=== PATIENT | female | born 1980 | race African-American/Black ===

== ENCOUNTER 2018-05-31 07:07 | Inpatient (IN) | payer SELFPAY ==
[~2018-05-31] VITALS: Ht 172.7 cm; Wt 121.6 kg
[~2018-05-31 07:07] MED LIST: ALBUTEROL; VICODIN
[2018-05-31] MEDS ORDERED: SODIUM CHLORIDE 0.9% 1,000 ML IV ONE (08:27)
[2018-05-31] MEDS ORDERED: HALOPERIDOL LACTATE 5MG/ML VIAL IM ONE (08:30)
[2018-05-31 09:18] LABS: BASOPHILS % 0.3 % (0.0-2.0); EOSINOPHILS % 0.2 % (0.0-5.0); HEMATOCRIT. 33.2 % (36.0-48.0); LYMPHOCYTES % 12.4 % (20.0-50.0); MEAN CORPUSCULAR HEMOGLOBIN 31.6 pg (28.0-32.0); MEAN CORPUSCULAR VOLUME 95.3 fL (81.0-99.0); MEAN PLATELET VOLUME 10.4 fl (7.4-10.4); MONOCYTES % 4.5 % (2.0-8.0); NEUTROPHILS % 82.6 % (40.0-76.0); PLATELET 215 x1000/uL (130-400); RED BLOOD CELL COUNT 3.49 mill/uL (4.2-5.4); RED CELL DISTRIBUTION WIDTH 13.8 % (11.6-14.6)
[2018-05-31 09:23] LABS: CHLORIDE 109 mEq/L (98-107); PROTHROMBIN TIME 10.3 sec (9.1-11.1)
[2018-05-31 09:29] LABS: ETHANOL BLOOD < 10 mg/dL
[2018-05-31 09:30] LABS: HCG SCREEN POSITIVE
[2018-05-31] MEDS ORDERED: POTASSIUM CHLORIDE 20MEQ TABLET SR PO NR (09:45)
[2018-05-31] MEDS ORDERED: SODIUM CHLORIDE 0.9% 1000ML BAG (SEPSIS BOLUS) IV ONE (10:00)
[2018-05-31 11:28] LABS: CLARITY URINE CLOUDY (CLEAR); KETONES URINE 2+ (NEGATIVE); LEUKOCYTE ESTERASE URINE 2+ (NEGATIVE); NITRITE URINE NEGATIVE (NEGATIVE); OCCULT BLOOD URINE 1+ (NEGATIVE); PH URINE 5.5 (4.5-8.0); PROTEIN URINE TRACE (NEGATIVE); SPECIFIC GRAVITY URINE 1.027 (1.005-1.030); UROBILINOGEN URINE 0.2 E.U./dL (0.2-1.0)
[2018-05-31 11:34] LABS: COLOR URINE DARK YELLOW (YELLOW)
[2018-05-31] MEDS: SODIUM CHLORIDE 0.9% IV SCH ×2 (11:36→14:33)
[2018-05-31 11:49] LABS: *BENZODIAZEPINES SCREEN URINE NEGATIVE (NEGATIVE); *COCAINE SCREEN URINE NEGATIVE (NEGATIVE)
[2018-05-31 11:50] LABS: METHADONE URINE SCREEN NEGATIVE (NEGATIVE); OPIATES URINE SCREEN NEGATIVE (NEGATIVE); PHENCYCLIDINE URINE SCREEN NEGATIVE (NEGATIVE)
[2018-05-31 12:05] LABS: *AMPHETAMINES SCREEN URINE NEGATIVE (NEGATIVE); *BARBITURATES SCREEN URINE NEGATIVE (NEGATIVE)
[2018-05-31 12:11] LABS: CANNABINOID URINE SCREEN PRESUMTIVE POSITIVE (NEGATIVE)
[2018-05-31] MEDS ORDERED: ONDANSETRON HCL 4MG/2ML VIAL IV STA (12:22)
[2018-05-31] MEDS ORDERED: MORPHINE SULFATE 4 MG/ML CPJ (NOT FOR IM USE) IV STA (12:22)
[2018-05-31] MEDS ORDERED: LEVOFLOXACIN 750MG PREMIX 150 ML IV ONE (13:45)
[2018-05-31 16:00] VITALS: BP 98/50
[2018-05-31] MEDS ORDERED: PROPOFOL 200MG/20ML VIAL IV ONE (20:12)
[2018-05-31] MEDS ORDERED: ROCURONIUM BROMIDE 10MG/ML VIAL 5ML IV ONE (20:12)
[2018-05-31] MEDS ORDERED: FENTANYL CITRATE/PF 50MCG/ML 5ML VIAL ONE (20:12)
[2018-05-31] MEDS ORDERED: ONDANSETRON HCL 4MG/2ML VIAL ONE (20:13)
[2018-05-31] MEDS ORDERED: METOCLOPRAMIDE HCL 10MG/2ML VIAL ONE (20:13)
[2018-05-31] MEDS ORDERED: MIDAZOLAM HCL 2 MG/2 ML VIAL ONE (20:13)
[2018-05-31] MEDS ORDERED: DEXAMETHASONE 4MG/ML 1ML VIAL ONE (20:13)
[2018-05-31] MEDS ORDERED: KETOROLAC 30MG/ML VIAL ONE (20:13)
[2018-05-31] MEDS ORDERED: LIDOCAINE HCL/PF 1% 10 MG/ML 5ML VIAL ONE (20:13)
[2018-05-31] MEDS ORDERED: GLYCOPYRROLATE 0.2 MG/ML 2ML VIAL ONE ×2 (21:27→22:19)
[2018-05-31] MEDS ORDERED: ONDANSETRON HCL 4MG/2ML VIAL IV PRN ×2 (21:30→22:00)
[2018-05-31] MEDS ORDERED: MEPERIDINE HCL/PF 25MG/ML CPJ IV PRN (21:30)
[2018-05-31] MEDS ORDERED: FENTANYL CITRATE/PF 50MCG/ML 2ML VIAL IV PRN (21:30)
[2018-05-31] MEDS ORDERED: HYDROMORPHONE HCL/PF 2MG/ML CPJ IV PRN (21:30)
[2018-05-31] MEDS ORDERED: MORPHINE SULFATE 4 MG/ML CPJ (NOT FOR IM USE) IV PRN (22:00)
[2018-05-31] MEDS ORDERED: NEOSTIGMINE METHYLSULFATE 1MG/ML 10 ML VIAL ONE (22:19)
[2018-05-31 22:36] LABS: BG BASE EXCESS -15.2 mmol/L (-2.0-2.0); BG CARBOXYHEMOGLOBIN 0.2 % (0.5-1.5); BG DEOXYHEMOGLOBIN 30.8 % (0.0-5.0); BG FRACTION INSPIRED OXYGEN 100; BG HCO3 ACT 13.9 mmol/L (22.0-26.0); BG METHEMOGLOBIN 0.4 % (0.0-1.5); BG OXYHEMOGLOBIN 68.6 % (94.0-97.0); BG PCO2 48.5 mmHg (35.0-45.0); BG PH 7.075 (7.350-7.450); BG PO2 52.2 mmHg (75.0-100.0); BG SAMPLE SITE RIGHT RADIAL; BG TIDAL VOLUME(mL) 500 mL; BG TOTAL HEMOGLOBIN 7.8 g/dL (12.0-18.0); BG VENT MODE VENT - A/C; BG VENT RATE 14 set
[2018-05-31] MEDS ORDERED: ALBUTEROL 90MCG/PUFF 17GM INHALER INH ONE (22:37)
[2018-05-31] MEDS ORDERED: SODIUM BICARBONATE 7.5% 0.9 MEQ/ML 50ML SYR IV ONE (22:51)
[2018-05-31] MEDS ORDERED: FUROSEMIDE 20MG/2ML VIAL ONE (23:05)
[2018-05-31] MEDS ORDERED: IPRATROPIUM/ALBUTEROL 0.5-3(2.5)MG/3ML NEB HHN NR (23:11)
[2018-05-31] MEDS ORDERED: IPRATROPIUM/ALBUTEROL 0.5-3(2.5)MG/3ML NEB ONE (23:19)
[2018-05-31 23:40] VITALS: BP 131/75
[2018-05-31 23:57] VITALS: BP 116/43
[2018-06-01] VITALS (95 sets, daily range): BP systolic 72–178; BP diastolic 21–107
[2018-06-01 00:22] LABS: BASOPHILS % 0.3 % (0.0-2.0); HEMATOCRIT. 26.9 % (36.0-48.0); HEMOGLOBIN. 8.9 g/dL (12.0-16.0); LYMPHOCYTES % 9.2 % (20.0-50.0); MEAN CORPUSCULAR VOLUME 97.2 fL (81.0-99.0); MEAN PLATELET VOLUME 10.1 fl (7.4-10.4); MONOCYTES % 1.9 % (2.0-8.0); NEUTROPHILS % 88.6 % (40.0-76.0); PLATELET 193 x1000/uL (130-400); RED BLOOD CELL COUNT 2.77 mill/uL (4.2-5.4); RED CELL DISTRIBUTION WIDTH 14.4 % (11.6-14.6)
[2018-06-01] MEDS ORDERED: IPRATROPIUM/ALBUTEROL 0.5-3(2.5)MG/3ML NEB HHN PRN (00:45)
[2018-06-01 01:17] LABS: BG BASE EXCESS -12.3 mmol/L (-2.0-2.0); BG BILEVEL POS AIRWAY PRESSURE 15/5; BG CARBOXYHEMOGLOBIN 0.3 % (0.5-1.5); BG DEOXYHEMOGLOBIN 1.3 % (0.0-5.0); BG FRACTION INSPIRED OXYGEN 100; BG HCO3 ACT 14.1 mmol/L (22.0-26.0); BG OXYGEN SATURATION 98.7 % (92.0-98.5); BG OXYHEMOGLOBIN 98.4 % (94.0-97.0); BG PCO2 34.3 mmHg (35.0-45.0); BG PH 7.233 (7.350-7.450); BG PO2 188.7 mmHg (75.0-100.0); BG SAMPLE SITE RIGHT RADIAL; BG TOTAL HEMOGLOBIN 10.1 g/dL (12.0-18.0); BG VENT MODE MASK - BIPAP; BG VENT RATE 16 set
[2018-06-01] MEDS ORDERED: SODIUM BICARBONATE 8.4% 1 MEQ/ML 50ML SYR IV SCH (01:50)
[2018-06-01] MEDS: IPRATROPIUM/ALBUTEROL 0.5-3(2.5)MG/3ML NEB HHN SCH ×6 (02:10→20:15)
[2018-06-01] MEDS ORDERED: LACTATED RINGERS 1,000 ML IV SCH (03:00)
[2018-06-01] MEDS ORDERED: FUROSEMIDE 20MG/2ML VIAL IVP SCH (05:45)
[2018-06-01 05:50] LABS: HEMATOCRIT. 26.3 % (36.0-48.0); MEAN CORPUSCULAR HEMOGLOBIN 32.6 pg (28.0-32.0); MEAN CORPUSCULAR VOLUME 95.4 fL (81.0-99.0); MEAN PLATELET VOLUME 10.4 fl (7.4-10.4); PLATELET 156 x1000/uL (130-400); RED BLOOD CELL COUNT 2.75 mill/uL (4.2-5.4); RED CELL DISTRIBUTION WIDTH 13.9 % (11.6-14.6)
[2018-06-01 06:07] LABS: BG BASE EXCESS -6.6 mmol/L (-2.0-2.0); BG BILEVEL POS AIRWAY PRESSURE 15/5; BG CARBOXYHEMOGLOBIN 0.3 % (0.5-1.5); BG DEOXYHEMOGLOBIN 1.1 % (0.0-5.0); BG FRACTION INSPIRED OXYGEN 80; BG HCO3 ACT 18.3 mmol/L (22.0-26.0); BG METHEMOGLOBIN 0.2 % (0.0-1.5); BG OXYGEN SATURATION 98.9 % (92.0-98.5); BG OXYHEMOGLOBIN 98.4 % (94.0-97.0); BG PCO2 34.2 mmHg (35.0-45.0); BG PH 7.347 (7.350-7.450); BG SAMPLE SITE RIGHT RADIAL; BG TOTAL HEMOGLOBIN 9.6 g/dL (12.0-18.0); BG VENT MODE MASK - BIPAP; BG VENT RATE 16 set
[2018-06-01 06:53] LABS: CHLORIDE 112 mEq/L (98-107)
[2018-06-01] MEDS ORDERED: DILTIAZEM HCL 5MG/ML 5ML VIAL IV SCH (08:15)
[2018-06-01] MEDS: SODIUM CHLORIDE 0.45% 1,000 ML IV SCH (08:50)
[2018-06-01] MEDS ORDERED: VANCOMYCIN 2,000 MG in DEXT 5% WATER 500 ML IV SCH (10:30)
[2018-06-01] MEDS ORDERED: NICOTINE 21MG PATCH TD SCH (11:30)
[2018-06-01 12:20] LABS: BG BASE EXCESS -4.4 mmol/L (-2.0-2.0); BG DEOXYHEMOGLOBIN 1.3 % (0.0-5.0); BG HCO3 ACT 20.7 mmol/L (22.0-26.0); BG METHEMOGLOBIN 0.3 % (0.0-1.5); BG OXYGEN SATURATION 98.7 % (92.0-98.5); BG OXYHEMOGLOBIN 98.4 % (94.0-97.0); BG PCO2 37.7 mmHg (35.0-45.0); BG PH 7.357 (7.350-7.450); BG PO2 180.4 mmHg (75.0-100.0); BG SAMPLE SITE RIGHT RADIAL; BG TIDAL VOLUME(mL) 500 mL; BG TOTAL HEMOGLOBIN 8.3 g/dL (12.0-18.0); BG VENT MODE VENT - A/C; BG VENT RATE 16 set
[2018-06-01 12:28] LABS: PLATELET ESTIMATE NORMAL
[2018-06-01] MEDS ORDERED: LIDOCAINE HCL 1% 20ML VIAL (Pyxis) INJ ONE (12:52)
[2018-06-01] MEDS: FENTANYL CITRATE/PF 500 MCG in SODIUM CHLORIDE 0.9% 40 ML IV PRN (13:15)
[2018-06-01] MEDS: MIDAZOLAM HCL 50 MG in DEXTROSE 5% WATER 40 ML IV PRN ×3 (13:18→23:31)
[2018-06-01] MEDS ORDERED: NORMAL SALINE 0.9% 10 ML SYR ONE (13:25)
[2018-06-01] MEDS ORDERED: ETOMIDATE 2MG/ML 10ML VIAL IV ONE (13:25)
[2018-06-01] MEDS ORDERED: SUCCINYLCHOLINE CHLORIDE 200MG/10ML VIAL IV ONE (13:25)
[2018-06-01] MEDS: PROPOFOL 10MG/ML 100ML 100 ML IV PRN ×3 (13:39→20:56)
[2018-06-01] MEDS: NOREPINEPHRINE 16 MG in DEXT 5% WATER 234 ML IV PRN (14:18)
[2018-06-01] MEDS: LEVOFLOXACIN 750MG PREMIX 150 ML IV SCH (15:34)
[2018-06-01] MEDS: DILTIAZEM HCL 125 MG in DEXT 5% WATER 100 ML IV PRN (16:50)
[2018-06-01] MEDS: BUDESONIDE 0.5MG/2ML NEB HHN SCH ×2 (18:17→20:15)
[2018-06-01] MEDS: FAMOTIDINE 20MG/2ML VIAL IV SCH (20:11)
[2018-06-01] MEDS: VANCOMYCIN 1250MG in DEXTROSE 5% WATER 250ML IV SCH (23:14)
[2018-06-02] VITALS (94 sets, daily range): BP systolic 87–129; BP diastolic 46–77
[2018-06-02] MEDS ORDERED: FUROSEMIDE 20MG/2ML VIAL IVP SCH (04:00)
[2018-06-02] MEDS: FENTANYL CITRATE/PF 500 MCG in SODIUM CHLORIDE 0.9% 40 ML IV PRN ×4 (04:08→22:53)
[2018-06-02] MEDS: DILTIAZEM HCL 125 MG in DEXT 5% WATER 100 ML IV PRN ×2 (04:11→14:21)
[2018-06-02] MEDS: SODIUM CHLORIDE 0.45% 1,000 ML IV SCH (05:03)
[2018-06-02] MEDS: MIDAZOLAM HCL 50 MG in DEXTROSE 5% WATER 40 ML IV PRN ×2 (05:16→10:13)
[2018-06-02] MEDS: NOREPINEPHRINE 16 MG in DEXT 5% WATER 234 ML IV PRN (07:20)
[2018-06-02] MEDS: BUDESONIDE 0.5MG/2ML NEB HHN SCH ×2 (08:08→20:23)
[2018-06-02] MEDS: IPRATROPIUM/ALBUTEROL 0.5-3(2.5)MG/3ML NEB HHN SCH ×3 (08:08→20:20)
[2018-06-02] MEDS: FAMOTIDINE 20MG/2ML VIAL IV SCH ×2 (08:31→22:22)
[2018-06-02] MEDS: THIAMINE HCL 100MG TABLET NG SCH (08:31)
[2018-06-02] MEDS: MULTIVITAMINS,THER W-MINERALS TABLET NG SCH (08:32)
[2018-06-02] MEDS: NICOTINE 21MG PATCH TD SCH (08:32)
[2018-06-02] MEDS: FOLIC ACID 1MG TABLET NG SCH (08:32)
[2018-06-02 08:33] LABS: BG BASE EXCESS 0.7 mmol/L (-2.0-2.0); BG CARBOXYHEMOGLOBIN 0.6 % (0.5-1.5); BG DEOXYHEMOGLOBIN 3.6 % (0.0-5.0); BG FRACTION INSPIRED OXYGEN 50; BG HCO3 ACT 25.3 mmol/L (22.0-26.0); BG METHEMOGLOBIN 0.9 % (0.0-1.5); BG OXYGEN SATURATION 96.3 % (92.0-98.5); BG OXYHEMOGLOBIN 94.9 % (94.0-97.0); BG PCO2 40.5 mmHg (35.0-45.0); BG PH 7.414 (7.350-7.450); BG PO2 92.4 mmHg (75.0-100.0); BG SAMPLE SITE RIGHT RADIAL; BG TIDAL VOLUME(mL) 450 mL; BG TOTAL HEMOGLOBIN 5.7 g/dL (12.0-18.0); BG VENT MODE VENT - A/C; BG VENT RATE 16 set
[2018-06-02] MEDS: VANCOMYCIN 1250MG in DEXTROSE 5% WATER 250ML IV SCH ×2 (10:46→22:21)
[2018-06-02] MEDS: PHENYLEPHRINE 20 MG in DEXT 5% WATER 248 ML IV PRN ×2 (12:57→17:18)
[2018-06-02] MEDS: LEVOFLOXACIN 750MG PREMIX 150 ML IV SCH (13:22)
[2018-06-02] MEDS: MIDAZOLAM HCL 100 MG in DEXT 5% WATER 80 ML IV PRN (15:34)
[2018-06-03] VITALS (89 sets, daily range): BP systolic 90–126; BP diastolic 46–81
[2018-06-03] MEDS: IPRATROPIUM/ALBUTEROL 0.5-3(2.5)MG/3ML NEB HHN SCH ×4 (02:26→19:42)
[2018-06-03] MEDS: MIDAZOLAM HCL 100 MG in DEXT 5% WATER 80 ML IV PRN ×3 (02:49→22:54)
[2018-06-03] MEDS: FENTANYL CITRATE/PF 500 MCG in SODIUM CHLORIDE 0.9% 40 ML IV PRN ×4 (04:23→20:29)
[2018-06-03] MEDS: DILTIAZEM HCL 125 MG in DEXT 5% WATER 100 ML IV PRN ×2 (04:31→17:57)
[2018-06-03 06:25] LABS: BASOPHILS % 0.5 % (0.0-2.0); EOSINOPHILS % 1.2 % (0.0-5.0); LYMPHOCYTES % 13.4 % (20.0-50.0); MEAN CORPUSCULAR HEMOGLOBIN 32.3 pg (28.0-32.0); MEAN PLATELET VOLUME 10.2 fl (7.4-10.4); MONOCYTES % 3.9 % (2.0-8.0); PLATELET 129 x1000/uL (130-400); RED BLOOD CELL COUNT 1.62 mill/uL (4.2-5.4); RED CELL DISTRIBUTION WIDTH 14.2 % (11.6-14.6)
[2018-06-03 06:33] LABS: HEMOGLOBIN. 5.2 g/dL (12.0-16.0)
[2018-06-03 06:34] LABS: HEMATOCRIT. 15.4 % (36.0-48.0)
[2018-06-03] MEDS: BUDESONIDE 0.5MG/2ML NEB HHN SCH ×2 (07:23→19:43)
[2018-06-03 08:16] LABS: BG BASE EXCESS 4.8 mmol/L (-2.0-2.0); BG CARBOXYHEMOGLOBIN 0.7 % (0.5-1.5); BG DEOXYHEMOGLOBIN 2.3 % (0.0-5.0); BG FRACTION INSPIRED OXYGEN 40; BG HCO3 ACT 29.7 mmol/L (22.0-26.0); BG METHEMOGLOBIN 0.3 % (0.0-1.5); BG OXYGEN SATURATION 97.7 % (92.0-98.5); BG OXYHEMOGLOBIN 96.7 % (94.0-97.0); BG PCO2 47.1 mmHg (35.0-45.0); BG PH 7.418 (7.350-7.450); BG PO2 106.2 mmHg (75.0-100.0); BG SAMPLE SITE RIGHT RADIAL; BG TIDAL VOLUME(mL) 450 mL; BG TOTAL HEMOGLOBIN 5.9 g/dL (12.0-18.0); BG VENT MODE VENT - A/C; BG VENT RATE 16 set
[2018-06-03 08:38] LABS: CHLORIDE 101 mEq/L (98-107)
[2018-06-03] MEDS: NICOTINE 21MG PATCH TD SCH (09:00)
[2018-06-03] MEDS: THIAMINE HCL 100MG TABLET NG SCH (09:01)
[2018-06-03] MEDS: FOLIC ACID 1MG TABLET NG SCH (09:01)
[2018-06-03] MEDS: FAMOTIDINE 20MG/2ML VIAL IV SCH ×2 (09:01→20:19)
[2018-06-03] MEDS: MULTIVITAMINS,THER W-MINERALS TABLET NG SCH (09:01)
[2018-06-03] MEDS: VANCOMYCIN 1250MG in DEXTROSE 5% WATER 250ML IV SCH ×2 (12:18→20:19)
[2018-06-03] MEDS: LEVOFLOXACIN 750MG PREMIX 150 ML IV SCH (13:13)
[2018-06-03] MEDS: PHENYLEPHRINE 20 MG in DEXT 5% WATER 248 ML IV PRN (17:57)
[2018-06-03] MEDS: SODIUM CHLORIDE 0.45% 1,000 ML IV SCH (19:48)
[2018-06-03 20:10] LABS: HEMATOCRIT 24.7 % (36.0-48.0); HEMOGLOBIN 8.4 g/dL (12.0-16.0)
[2018-06-04] VITALS (88 sets, daily range): BP systolic 81–163; BP diastolic 47–134
[2018-06-04] MEDS: IPRATROPIUM/ALBUTEROL 0.5-3(2.5)MG/3ML NEB HHN SCH ×4 (01:30→19:56)
[2018-06-04] MEDS: DILTIAZEM HCL 125 MG in DEXT 5% WATER 100 ML IV PRN (02:44)
[2018-06-04] MEDS: FENTANYL CITRATE/PF 500 MCG in SODIUM CHLORIDE 0.9% 40 ML IV PRN ×4 (03:01→20:35)
[2018-06-04] MEDS: VANCOMYCIN 1250MG in DEXTROSE 5% WATER 250ML IV SCH ×3 (04:29→20:33)
[2018-06-04 05:16] LABS: BASOPHILS % 0.5 % (0.0-2.0); EOSINOPHILS % 1.3 % (0.0-5.0); HEMATOCRIT. 22.4 % (36.0-48.0); HEMOGLOBIN. 7.7 g/dL (12.0-16.0); LYMPHOCYTES % 14.8 % (20.0-50.0); MEAN CORPUSCULAR HEMOGLOBIN 30.8 pg (28.0-32.0); MEAN CORPUSCULAR VOLUME 89.8 fL (81.0-99.0); MEAN PLATELET VOLUME 9.3 fl (7.4-10.4); MONOCYTES % 4.9 % (2.0-8.0); NEUTROPHILS % 78.5 % (40.0-76.0); PLATELET 140 x1000/uL (130-400); RED BLOOD CELL COUNT 2.49 mill/uL (4.2-5.4); RED CELL DISTRIBUTION WIDTH 15.5 % (11.6-14.6)
[2018-06-04 05:17] LABS: CHLORIDE 102 mEq/L (98-107)
[2018-06-04] MEDS: BUDESONIDE 0.5MG/2ML NEB HHN SCH ×2 (07:49→19:56)
[2018-06-04 08:21] LABS: BG BASE EXCESS 6.2 mmol/L (-2.0-2.0); BG CARBOXYHEMOGLOBIN 0.6 % (0.5-1.5); BG FRACTION INSPIRED OXYGEN 40; BG HCO3 ACT 31.4 mmol/L (22.0-26.0); BG METHEMOGLOBIN 0.1 % (0.0-1.5); BG OXYHEMOGLOBIN 97.3 % (94.0-97.0); BG PCO2 49.7 mmHg (35.0-45.0); BG PH 7.418 (7.350-7.450); BG SAMPLE SITE RIGHT RADIAL; BG TIDAL VOLUME(mL) 450 mL; BG TOTAL HEMOGLOBIN 7.7 g/dL (12.0-18.0); BG VENT MODE VENT - A/C; BG VENT RATE 16 set
[2018-06-04] MEDS: FOLIC ACID 1MG TABLET NG SCH (09:48)
[2018-06-04] MEDS: MULTIVITAMINS,THER W-MINERALS TABLET NG SCH (09:48)
[2018-06-04] MEDS: THIAMINE HCL 100MG TABLET NG SCH (09:48)
[2018-06-04] MEDS: FAMOTIDINE 20MG/2ML VIAL IV SCH ×2 (09:48→20:33)
[2018-06-04] MEDS: NICOTINE 21MG PATCH TD SCH (09:49)
[2018-06-04] MEDS ORDERED: BISACODYL 10MG SUPP PR PRN (11:15)
[2018-06-04] MEDS: DOCUSATE SODIUM 250MG CAPSULE PO SCH (11:55)
[2018-06-04] MEDS: METOCLOPRAMIDE HCL 10MG/2ML VIAL IV SCH ×2 (11:55→17:25)
[2018-06-04] MEDS: MIDAZOLAM HCL 100 MG in DEXT 5% WATER 80 ML IV PRN (11:57)
[2018-06-04] MEDS: LEVOFLOXACIN 750MG PREMIX 150 ML IV SCH (13:17)
[2018-06-04] MEDS: SODIUM CHLORIDE 0.45% 1,000 ML IV SCH (20:33)
[2018-06-05] VITALS (78 sets, daily range): BP systolic 77–128; BP diastolic 32–104
[2018-06-05] MEDS: METOCLOPRAMIDE HCL 10MG/2ML VIAL IV SCH ×4 (00:33→18:06)
[2018-06-05] MEDS: IPRATROPIUM/ALBUTEROL 0.5-3(2.5)MG/3ML NEB HHN SCH ×4 (01:48→20:16)
[2018-06-05] MEDS: FENTANYL CITRATE/PF 500 MCG in SODIUM CHLORIDE 0.9% 40 ML IV PRN ×3 (02:38→20:12)
[2018-06-05] MEDS: VANCOMYCIN 1250MG in DEXTROSE 5% WATER 250ML IV SCH ×3 (03:58→20:21)
[2018-06-05 07:36] LABS: BG CARBOXYHEMOGLOBIN 0.4 % (0.5-1.5); BG DEOXYHEMOGLOBIN 2.1 % (0.0-5.0); BG METHEMOGLOBIN 0.3 % (0.0-1.5); BG OXYGEN SATURATION 97.9 % (92.0-98.5); BG OXYHEMOGLOBIN 97.2 % (94.0-97.0); BG PCO2 47.7 mmHg (35.0-45.0); BG PH 7.417 (7.350-7.450); BG PO2 122.6 mmHg (75.0-100.0); BG SAMPLE SITE RIGHT BRACHIAL; BG TIDAL VOLUME(mL) 450 mL; BG TOTAL HEMOGLOBIN 7.3 g/dL (12.0-18.0); BG VENT MODE VENT - A/C; BG VENT RATE 16 set
[2018-06-05] MEDS: BUDESONIDE 0.5MG/2ML NEB HHN SCH ×2 (08:26→20:14)
[2018-06-05 08:56] LABS: BASOPHILS % 0.4 % (0.0-2.0); EOSINOPHILS % 3.6 % (0.0-5.0); HEMATOCRIT. 21.8 % (36.0-48.0); HEMOGLOBIN. 7.5 g/dL (12.0-16.0); LYMPHOCYTES % 22.7 % (20.0-50.0); MEAN CORPUSCULAR HEMOGLOBIN 31.3 pg (28.0-32.0); MEAN CORPUSCULAR VOLUME 90.6 fL (81.0-99.0); MEAN PLATELET VOLUME 8.4 fl (7.4-10.4); MONOCYTES % 7.6 % (2.0-8.0); NEUTROPHILS % 65.7 % (40.0-76.0); PLATELET 180 x1000/uL (130-400); RED CELL DISTRIBUTION WIDTH 15.3 % (11.6-14.6)
[2018-06-05 09:03] LABS: CHLORIDE 103 mEq/L (98-107)
[2018-06-05] MEDS: FOLIC ACID 1MG TABLET NG SCH (09:56)
[2018-06-05] MEDS: THIAMINE HCL 100MG TABLET NG SCH (09:56)
[2018-06-05] MEDS: MULTIVITAMINS,THER W-MINERALS TABLET NG SCH (09:56)
[2018-06-05] MEDS: FAMOTIDINE 20MG/2ML VIAL IV SCH ×2 (09:56→21:26)
[2018-06-05] MEDS: DOCUSATE SODIUM 250MG CAPSULE PO SCH (09:56)
[2018-06-05] MEDS: METRONIDAZOLE 500 MG PREMIX 100 ML IV SCH ×2 (13:59→21:25)
[2018-06-05] MEDS: CEFTRIAXONE 1 G PREMIX 50 ML IV SCH (14:00)
[2018-06-06] VITALS (78 sets, daily range): BP systolic 88–160; BP diastolic 36–80
[2018-06-06] MEDS: METOCLOPRAMIDE HCL 10MG/2ML VIAL IV SCH ×4 (00:30→18:15)
[2018-06-06] MEDS: IPRATROPIUM/ALBUTEROL 0.5-3(2.5)MG/3ML NEB HHN SCH ×3 (02:01→20:31)
[2018-06-06] MEDS: FENTANYL CITRATE/PF 500 MCG in SODIUM CHLORIDE 0.9% 40 ML IV PRN (02:50)
[2018-06-06] MEDS: VANCOMYCIN 1250MG in DEXTROSE 5% WATER 250ML IV SCH ×3 (04:38→20:10)
[2018-06-06 05:26] LABS: BASOPHILS % 0.4 % (0.0-2.0); EOSINOPHILS % 2.7 % (0.0-5.0); HEMOGLOBIN. 7.2 g/dL (12.0-16.0); LYMPHOCYTES % 21.1 % (20.0-50.0); MEAN CORPUSCULAR HEMOGLOBIN 30.9 pg (28.0-32.0); MEAN CORPUSCULAR VOLUME 89.8 fL (81.0-99.0); MEAN PLATELET VOLUME 8.4 fl (7.4-10.4); MONOCYTES % 6.3 % (2.0-8.0); NEUTROPHILS % 69.5 % (40.0-76.0); PLATELET 209 x1000/uL (130-400); RED BLOOD CELL COUNT 2.33 mill/uL (4.2-5.4); RED CELL DISTRIBUTION WIDTH 15.1 % (11.6-14.6)
[2018-06-06 05:31] LABS: CHLORIDE 103 mEq/L (98-107)
[2018-06-06] MEDS: METRONIDAZOLE 500 MG PREMIX 100 ML IV SCH ×3 (05:58→21:15)
[2018-06-06] MEDS: SODIUM CHLORIDE 0.45% 1,000 ML IV SCH ×3 (08:00→13:11)
[2018-06-06] MEDS: FAMOTIDINE 20MG/2ML VIAL IV SCH ×2 (08:07→21:14)
[2018-06-06] MEDS: THIAMINE HCL 100MG TABLET NG SCH (08:07)
[2018-06-06] MEDS: MULTIVITAMINS,THER W-MINERALS TABLET NG SCH (08:07)
[2018-06-06] MEDS: DOCUSATE SODIUM 250MG CAPSULE PO SCH (08:08)
[2018-06-06] MEDS: FOLIC ACID 1MG TABLET NG SCH (08:08)
[2018-06-06 08:22] LABS: BG BASE EXCESS 6.7 mmol/L (-2.0-2.0); BG CARBOXYHEMOGLOBIN 0.5 % (0.5-1.5); BG DEOXYHEMOGLOBIN 3.8 % (0.0-5.0); BG FRACTION INSPIRED OXYGEN 40; BG HCO3 ACT 31.6 mmol/L (22.0-26.0); BG METHEMOGLOBIN 0.4 % (0.0-1.5); BG OXYGEN SATURATION 96.2 % (92.0-98.5); BG OXYHEMOGLOBIN 95.3 % (94.0-97.0); BG PCO2 47.8 mmHg (35.0-45.0); BG PH 7.438 (7.350-7.450); BG PO2 90.1 mmHg (75.0-100.0); BG SAMPLE SITE LEFT RADIAL; BG TIDAL VOLUME(mL) 450 mL; BG TOTAL HEMOGLOBIN 7.5 g/dL (12.0-18.0); BG VENT MODE VENT - A/C; BG VENT RATE 16 set
[2018-06-06] MEDS: BUDESONIDE 0.5MG/2ML NEB HHN SCH (08:34)
[2018-06-06 11:17] LABS: BG BASE EXCESS 3.1 mmol/L (-2.0-2.0); BG CARBOXYHEMOGLOBIN 0.2 % (0.5-1.5); BG CPAP (cmH2O) 0 cm(H2O); BG DEOXYHEMOGLOBIN 5.3 % (0.0-5.0); BG HCO3 ACT 27.5 mmol/L (22.0-26.0); BG METHEMOGLOBIN 0.3 % (0.0-1.5); BG OXYGEN SATURATION 94.7 % (92.0-98.5); BG OXYHEMOGLOBIN 94.2 % (94.0-97.0); BG PCO2 41.2 mmHg (35.0-45.0); BG PH 7.442 (7.350-7.450); BG PO2 78.6 mmHg (75.0-100.0); BG SAMPLE SITE RIGHT RADIAL; BG TOTAL HEMOGLOBIN 9.1 g/dL (12.0-18.0); BG VENT MODE VENT - CPAP
[2018-06-06] MEDS: CEFTRIAXONE 1 G PREMIX 50 ML IV SCH (14:27)
[2018-06-06] MEDS ORDERED: ACETAMINOPHEN 650MG/20.3ML UDC PO PRN (21:45)
[2018-06-06] MEDS ORDERED: DIPHENHYDRAMINE 50MG/ML VIAL IV PRN (21:45)
[2018-06-07] VITALS (20 sets, daily range): BP systolic 95–143; BP diastolic 47–100
[2018-06-07] MEDS: METOCLOPRAMIDE HCL 10MG/2ML VIAL IV SCH ×2 (00:30→05:26)
[2018-06-07] MEDS ORDERED: TEMAZEPAM 15MG CAPSULE PO PRN (00:30)
[2018-06-07] MEDS: IPRATROPIUM/ALBUTEROL 0.5-3(2.5)MG/3ML NEB HHN SCH ×4 (02:16→21:08)
[2018-06-07] MEDS: VANCOMYCIN 1250MG in DEXTROSE 5% WATER 250ML IV SCH ×3 (03:56→20:55)
[2018-06-07] MEDS: SODIUM CHLORIDE 0.45% 1,000 ML IV SCH (04:34)
[2018-06-07] MEDS: METRONIDAZOLE 500 MG PREMIX 100 ML IV SCH ×3 (04:42→22:32)
[2018-06-07 05:48] LABS: BASOPHILS % 0.2 % (0.0-2.0); EOSINOPHILS % 0.9 % (0.0-5.0); HEMATOCRIT. 32.4 % (36.0-48.0); HEMOGLOBIN. 10.9 g/dL (12.0-16.0); LYMPHOCYTES % 12.8 % (20.0-50.0); MEAN CORPUSCULAR HEMOGLOBIN 29.4 pg (28.0-32.0); MEAN CORPUSCULAR VOLUME 86.9 fL (81.0-99.0); MEAN PLATELET VOLUME 8.4 fl (7.4-10.4); MONOCYTES % 3.4 % (2.0-8.0); NEUTROPHILS % 82.7 % (40.0-76.0); PLATELET 269 x1000/uL (130-400); RED BLOOD CELL COUNT 3.72 mill/uL (4.2-5.4)
[2018-06-07 05:55] LABS: CHLORIDE 103 mEq/L (98-107)
[2018-06-07] MEDS: FAMOTIDINE 20MG/2ML VIAL IV SCH ×2 (08:15→20:54)
[2018-06-07] MEDS: DOCUSATE SODIUM 250MG CAPSULE PO SCH (08:15)
[2018-06-07] MEDS: MULTIVITAMINS,THER W-MINERALS TABLET NG SCH (08:15)
[2018-06-07] MEDS: FOLIC ACID 1MG TABLET NG SCH (08:15)
[2018-06-07] MEDS: THIAMINE HCL 100MG TABLET NG SCH (08:15)
[2018-06-07 08:45] LABS: BG BASE EXCESS 4.3 mmol/L (-2.0-2.0); BG CARBOXYHEMOGLOBIN 0.3 % (0.5-1.5); BG DEOXYHEMOGLOBIN 13.3 % (0.0-5.0); BG FRACTION INSPIRED OXYGEN 21; BG HCO3 ACT 27.7 mmol/L (22.0-26.0); BG METHEMOGLOBIN 0.3 % (0.0-1.5); BG OXYGEN SATURATION 86.6 % (92.0-98.5); BG OXYHEMOGLOBIN 86.1 % (94.0-97.0); BG PCO2 36.9 mmHg (35.0-45.0); BG PH 7.494 (7.350-7.450); BG PO2 46.6 mmHg (75.0-100.0); BG SAMPLE SITE RIGHT RADIAL; BG TOTAL HEMOGLOBIN 10.9 g/dL (12.0-18.0); BG VENT MODE ROOM AIR
[2018-06-07] MEDS: CEFTRIAXONE 1 G PREMIX 50 ML IV SCH (14:07)
[2018-06-08] VITALS: BP 105/54
[2018-06-08] MEDS: IPRATROPIUM/ALBUTEROL 0.5-3(2.5)MG/3ML NEB HHN SCH (02:14)
[2018-06-08 04:00] VITALS: BP 103/53
[2018-06-08] MEDS: METRONIDAZOLE 500 MG PREMIX 100 ML IV SCH ×3 (04:52→21:38)
[2018-06-08] MEDS: VANCOMYCIN 1250MG in DEXTROSE 5% WATER 250ML IV SCH ×3 (04:52→19:52)
[2018-06-08 08:00] VITALS: BP 124/67
[2018-06-08] MEDS: THIAMINE HCL 100MG TABLET NG SCH (08:42)
[2018-06-08] MEDS: FAMOTIDINE 20MG/2ML VIAL IV SCH ×2 (08:42→21:38)
[2018-06-08] MEDS: MULTIVITAMINS,THER W-MINERALS TABLET NG SCH (08:42)
[2018-06-08] MEDS: FOLIC ACID 1MG TABLET NG SCH (08:42)
[2018-06-08] MEDS: DOCUSATE SODIUM 250MG CAPSULE PO SCH ×2 (08:42→08:56)
[2018-06-08 12:00] VITALS: BP 125/75
[2018-06-08] MEDS: CEFTRIAXONE 1 G PREMIX 50 ML IV SCH (13:58)
[2018-06-08 18:33] LABS: BG BASE EXCESS 1.7 mmol/L (-2.0-2.0); BG CARBOXYHEMOGLOBIN 0.2 % (0.5-1.5); BG DEOXYHEMOGLOBIN 7.6 % (0.0-5.0); BG HCO3 ACT 24.7 mmol/L (22.0-26.0); BG METHEMOGLOBIN 0.2 % (0.0-1.5); BG OXYGEN SATURATION 92.4 % (92.0-98.5); BG PCO2 32.5 mmHg (35.0-45.0); BG PH 7.498 (7.350-7.450); BG SAMPLE SITE RIGHT RADIAL; BG VENT MODE ROOM AIR
[2018-06-08 20:00] VITALS: BP 141/76
[2018-06-08 21:36] LABS: BASOPHILS % 0.9 % (0.0-2.0); EOSINOPHILS % 3.1 % (0.0-5.0); HEMATOCRIT. 29.5 % (36.0-48.0); HEMOGLOBIN. 9.9 g/dL (12.0-16.0); LYMPHOCYTES % 23.1 % (20.0-50.0); MEAN CORPUSCULAR HEMOGLOBIN 29.4 pg (28.0-32.0); MEAN CORPUSCULAR VOLUME 87.4 fL (81.0-99.0); MONOCYTES % 8.1 % (2.0-8.0); NEUTROPHILS % 64.8 % (40.0-76.0); PLATELET 347 x1000/uL (130-400); RED BLOOD CELL COUNT 3.38 mill/uL (4.2-5.4)
[2018-06-08] MEDS ORDERED: SULF1TAB48 MT (22:33)
[2018-06-08] MEDS ORDERED: CLIN300C11 MT (22:35)
[2018-06-08 23:08] VITALS: BP 113/66
== END 2018-06-09 00:05 | disposition home or self-care (01) | DRG 545 ==
LOC: ER 07:32 → 6EST 12:27 → ENRESERV 14:41 → MICUSO 23:30 → 8WST 06-07 14:47
PROVIDERS: ADMIT Obstetrics & Gynecology; ATTEND Obstetrics & Gynecology
PROC: 10T20ZZ Resection of Products of Conception, Ectopic, Open Approach (ICD-10-PCS; 2018-05-31)
PROC: 5A1935Z Respiratory Ventilation, Less than 24 Consecutive Hours (ICD-10-PCS; 2018-05-31)
PROC: 0BH17EZ Insertion of Endotracheal Airway into Trachea, Via Natural or Artificial Opening (ICD-10-PCS; 2018-05-31)
PROC: 5A09357 Assistance with Respiratory Ventilation, Less than 24 Consecutive Hours, Continuous Positive Airway Pressure (ICD-10-PCS; 2018-05-31)
PROC: 0UB50ZZ Excision of Right Fallopian Tube, Open Approach (ICD-10-PCS; principal; 2018-05-31 19:00)
PROC: 5A1955Z Respiratory Ventilation, Greater than 96 Consecutive Hours (ICD-10-PCS; 2018-06-01)
PROC: 02HV33Z Insertion of Infusion Device into Superior Vena Cava, Percutaneous Approach (ICD-10-PCS; 2018-06-01)
PROC: B548ZZA Ultrasonography of Superior Vena Cava, Guidance (ICD-10-PCS; 2018-06-01)
PROC: 30233N1 Transfusion of Nonautologous Red Blood Cells into Peripheral Vein, Percutaneous Approach (ICD-10-PCS; 2018-06-03)
DX: O98.811 Other maternal infectious and parasitic diseases complicating pregnancy, first trimester (principal); A41.2 Sepsis due to unspecified staphylococcus; J96.00 Acute respiratory failure, unspecified whether with hypoxia or hypercapnia; K66.1 Hemoperitoneum; J18.9 Pneumonia, unspecified organism; I48.91 Unspecified atrial fibrillation; O00.101 Right tubal pregnancy without intrauterine pregnancy; D62 Acute posthemorrhagic anemia; O99.011 Anemia complicating pregnancy, first trimester; O23.41 Unspecified infection of urinary tract in pregnancy, first trimester; O99.321 Drug use complicating pregnancy, first trimester; F12.90 Cannabis use, unspecified, uncomplicated; O26.891 Other specified pregnancy related conditions, first trimester; E66.9 Obesity, unspecified; O99.211 Obesity complicating pregnancy, first trimester; O99.511 Diseases of the respiratory system complicating pregnancy, first trimester; E78.1 Pure hyperglyceridemia; F14.90 Cocaine use, unspecified, uncomplicated; O99.331 Smoking (tobacco) complicating pregnancy, first trimester; F17.210 Nicotine dependence, cigarettes, uncomplicated; J45.909 Unspecified asthma, uncomplicated; N39.0 Urinary tract infection, site not specified; R65.20 Severe sepsis without septic shock; Z88.0 Allergy status to penicillin; Z3A.14 14 weeks gestation of pregnancy; Z68.41 Body mass index [BMI] 40.0-44.9, adult
CPT/HCPCS: 31500; 36415; 36569; 36600; 71045; 76801; 76937; 80048; 80053; 80202; 80305; 81003; 82375; 82805; 83036; 83605; 83690; 83880; 84478; 84702; 84703; 85014; 85018; 85025; 85610; 86850; 86900; 86920; 87040; 87077; 87086; 87186; 88305; 92610; 93005; 93306; 93970; 94002; 94003; 94640; 94660; 96361; 96365; 96372; 96375; 97116; 97162; 97166; 97530; 99291; A4216; C1725; C1769; C1893; G0482; J0330; J0696; J1100; J1200; J1630; J1885; J1940; J1956; J2250; J2270; J2370; J2405; J2704; J2710; J2765; J3010; J3370; J3490; J7030; J7050; J7060; J7620; J7626; P9016

== ENCOUNTER 2023-07-23 13:01 | Emergency (ER) | payer MEDICAID ==
[~2023-07-23] VITALS: Ht 165.1 cm; Wt 118.0 kg
[2023-07-23 13:15] VITALS: O2SAT 100
[2023-07-23] MEDS ORDERED: LIDOCAINE HCL/PF 1% 10 MG/ML 5ML VIAL INFIL ONE (14:00)
[2023-07-23] MEDS ORDERED: BACITRACIN ZINC OINT UDPKT TOP ONE (14:00)
[2023-07-23] MEDS ORDERED: ACETAMINOPHEN 325MG TABLET PO ONE (14:00)
[2023-07-23] MEDS ORDERED: TETANUS, DIPHTHERIA, PERTUSSIS VAC/PF 0.5ML (>10YR OLD) IM ONE (14:00)
[2023-07-23] MEDS ORDERED: IBUPROFEN 600MG TABLET PO ONE (14:00)
[2023-07-23] MEDS ORDERED: HYDROCODONE/ACETAMINOPHEN 5/325MG TABLET PO ONE (14:45)
[2023-07-23] MEDS ORDERED: IBUP-2028 MT (17:07)
[2023-07-23] MEDS ORDERED: DOXY100C5 MT (17:07)
[2023-07-23 17:34] VITALS: BP 138/88; PULSE 88; RESP 18; TEMP 98.7
== END 2023-07-23 17:38 | disposition home or self-care (01) ==
LOC: ER 13:01
DX: N76.4 Abscess of vulva (principal); J45.909 Unspecified asthma, uncomplicated; Z88.0 Allergy status to penicillin
CPT/HCPCS: 81025; 10060; 99283; J3490; Z7610 ×2